=== PATIENT | female | born 1980 | race African-American/Black ===

== ENCOUNTER 2018-09-18 03:04 | Emergency (ER) | payer OTHER ==
[2018-09-18] MEDS: ACETAMINOPHEN 500 MG TAB PO (04:04)
== END 2018-09-18 04:11 | disposition home or self-care (01) ==
LOC: FTE 03:04
DX: K08.89 Other specified disorders of teeth and supporting structures (principal); J45.909 Unspecified asthma, uncomplicated
CPT/HCPCS: 99283; Z7502